=== PATIENT | male | born 1935 | race Caucasian/White ===

== ENCOUNTER 2019-09-15 09:00 | Observation (INO) | payer OTHER ==
[2019-09-12 12:40] LABS: BASOPHILS % (AUTO) 0.9 % (0.0-5.0); EOSINOPHILS % (AUTO) 1.3 % (0.0-8.0); HEMATOCRIT 42.6 % (42-54); LYMPHOCYTES % (AUTO) 28.3 % (21.0-51.0); MEAN CORPUSCULAR HEMOGLOBIN 31.7 pg (27.0-33.0); MEAN CORPUSCULAR HGB CONC 33.6 g/dL (32.0-36.0); MEAN CORPUSCULAR VOLUME 94.1 fL (79-99); NEUTROPHILS % (AUTO) 62.5 % (40.0-77.0); PLATELET COUNT (AUTO) 248 K/uL (130-400); RED BLOOD CELL COUNT(AUTO) 4.52 MIL/uL (4.50-6.20); RED CELL DISTRIBUTION WIDTH 13.7 % (11.0-15.5); WHITE BLOOD COUNT (AUTO) 7.6 K/uL (4.8-10.8)
[2019-09-12 12:47] LABS: CREATININE 1.2 mg/dL (0.5-1.5); POTASSIUM 4.6 mmol/L (3.5-5.1)
[2019-09-12 12:51] LABS: INR 1.11 (0.85-1.15); PARTIAL THROMBOPLASTIN TIME 30.7 SEC (26.3-35.5); PROTHROMBIN TIME 11.6 SEC (9.6-11.6)
[2019-09-12 13:37] VITALS: BP 136/70
[2019-09-15] VITALS (9 sets, daily range): BP systolic 103–141; BP diastolic 57–86
[~2019-09-15] VITALS: Ht 188 cm; Wt 88.6 kg
[~2019-09-15 09:00] MED LIST: APIX5TAB PO; ATOR10TA69 PO; CARV3.12 PO; CLINDAMYCIN 900 MG/D5% WATER 50 ML IV SCH; MEMA5TAB15 PO; SACU1TAB7 PO; SODIUM CHLORIDE 0.9% 1000ML 1,000 ML IV SCH
[2019-09-15] MEDS ORDERED: CEFAZOLIN SODIUM 1 GM VIAL ONE (11:26)
[2019-09-15] MEDS ORDERED: BUPIVACAINE/PF 0.25% 30ML VIAL IJ ONE (11:26)
[2019-09-15] MEDS ORDERED: MEPERIDINE-PF 25 MG/ML SYG ONE ×3 (11:26→13:04)
[2019-09-15] MEDS ORDERED: MIDAZOLAM HCL 1 MG/ML 2ML VIAL ONE ×3 (11:26→13:02)
[2019-09-15] MEDS ORDERED: LIDOCAINE HCL 1% MDV 50ML VIAL ONE (11:26)
[2019-09-15] MEDS ORDERED: VANCOMYCIN 1GM+NS 250ML 500 ML IV ONE (11:36)
[2019-09-15] MEDS ORDERED: IODIXANOL 320 MG/ML 100 ML VIAL ONE (11:57)
[2019-09-15] MEDS ORDERED: THROMBIN-JMI 5000 UNIT/VIAL TP ONE (13:01)
[2019-09-15] MEDS ORDERED: FENTANYL CITRATE PF 50 MCG/1 ML 2ML VIAL ONE (13:03)
[2019-09-15] MEDS ORDERED: OCTYL 2-CYANOACRYLATE 1 EACH TP ONE (13:11)
[2019-09-15] MEDS ORDERED: ONDANSETRON HCL 4 MG/2 ML VIAL IV PRN (13:45)
[2019-09-15] MEDS ORDERED: ACETAMINOPHEN-CODEINE 300/30MG TAB PO PRN ×2 (13:45)
--- NOTE | 2019-09-15 14:26 | NUR ---
CALL ANSWERING SERVICE TO PAGE TO ADMIT PT.
--- NOTE | 2019-09-15 14:50 | NUR ---
PT TSF BY BED TO RM [id number] REPORT GIVEN TO SONIA DELACRUZ RN. PT WAS STABLE NO COMPLICATION. DRESSING DRY AND INTACT AND PULSES PRESENT.
--- NOTE | 2019-09-15 15:30 | NUR ---
POST PROCEDURE RECEIVED PT FROM AUTOMATION QA ANALYST, IN FLAT POSITION, ASLEEP BUT AROUSEABLE, A&OX3, CALM COOPERATIVE AND DOES NOT APPEAR TO BE IN ANY DISTRESS NOR ANY NEURO DEFICITS PRESENT. LEFT SHOULDER DRESSING DRY, INTACT AND SECURED WITH ARM SLING. PT DOES C/O INCISIONAL SORENESS BUT DENIES NAUSEA OR DIZZINESS. PT ON BEDREST, CALL LIGHT WITHIN REACH, FAMILY AT BEDSIDE.
[2019-09-15] MEDS ORDERED: ACETAMINOPHEN 325 MG TAB ONE (19:31)
[2019-09-15] MEDS: SACUBITRIL PO SCH (21:00)
[2019-09-15] MEDS ORDERED: CARVEDILOL 3.125 MG TABLET PO SCH (21:00)
[2019-09-15] MEDS ORDERED: MEMANTINE HCL 5 MG TABLET PO SCH (21:00)
[2019-09-15] MEDS ORDERED: ATORVASTATIN CALCIUM 10 MG TABLET PO SCH (21:00)
[2019-09-15] MEDS: VALSARTAN PO SCH (21:00)
[2019-09-16 03:37] VITALS: BP 132/84
[2019-09-16] MEDS ORDERED: VANCOMYCIN 1GM+NS 250ML 250 ML IV SCH (06:00)
[2019-09-16 07:00] VITALS: BP 124/75
[2019-09-16 11:00] VITALS: BP 106/63
[2019-09-16] MEDS ORDERED: APIX5TAB PO (14:04)
[2019-09-16] MEDS ORDERED: DOXY100C2 PO (14:04)
[2019-09-16 15:00] VITALS: BP 146/86
[2019-09-16] MEDS: VALSARTAN PO SCH (16:49)
[2019-09-16] MEDS: SACUBITRIL PO SCH (16:49)
== END 2019-09-16 17:40 | disposition home or self-care (01) ==
LOC: DAH 09:00 → DAHIP 13:33 → DAH 13:33 → 2AH 15:10
PROVIDERS: ADMIT Internal Medicine; ATTEND Internal Medicine
DX: I42.8 Other cardiomyopathies (principal); R00.1 Bradycardia, unspecified; R53.83 Other fatigue; I10 Essential (primary) hypertension; E78.5 Hyperlipidemia, unspecified; Z79.01 Long term (current) use of anticoagulants; Z95.0 Presence of cardiac pacemaker; Z79.899 Other long term (current) drug therapy; Z88.0 Allergy status to penicillin; Z91.018 Allergy to other foods
CPT/HCPCS: 33225; 33229; 36415; 71045; 71046; 80048; 85025; 85610; 85730; 93005; A4215; A4216; A4221; A4222; A4223 ×3; A4606; A4663; C1769 ×2; C1882; C1894; C1900; G0378 ×28; J2175 ×3; J2250 ×3; J3370; J3490 ×3; Q9967; 99156; 99157; J0690; J3010

== ENCOUNTER → 2020-09-27 | Outpatient (CLI) | payer MEDICARE ==
[~2020-09-27] MED LIST changes: -CLINDAMYCIN 900 MG/D5% WATER 50 ML IV SCH; +DOXY100C2 PO; -MEMA5TAB15 PO; +MEMA5TAB42 PO; +REGADENOSON 0.4 MG/5 ML PF SYG IVP SCH; -SODIUM CHLORIDE 0.9% 1000ML 1,000 ML IV SCH
== END | disposition home or self-care (01) ==
LOC: SHCH 08:01
PROVIDERS: ATTEND Internal Medicine Cardiovascular Disease
DX: I10 Essential (primary) hypertension (principal); I42.8 Other cardiomyopathies
CPT/HCPCS: 78452; 93017; 96374; A9500 ×2; J2785

== ENCOUNTER 2021-01-04 06:48 | Day surgery (SDC) | payer MEDICARE ==
[2020-12-30 15:18] LABS: BASOPHILS % (AUTO) 1.3 % (0.0-5.0); EOSINOPHILS % (AUTO) 1.1 % (0.0-8.0); HEMATOCRIT 47.1 % (42-54); MEAN CORPUSCULAR HEMOGLOBIN 30.6 pg (27.0-33.0); MEAN CORPUSCULAR HGB CONC 32.3 g/dL (32.0-36.0); NEUTROPHILS % (AUTO) 51.5 % (40.0-77.0); PLATELET COUNT (AUTO) 155 K/uL (130-400); RED BLOOD CELL COUNT(AUTO) 4.96 MIL/uL (4.50-6.20); RED CELL DISTRIBUTION WIDTH 14.5 % (11.0-15.5); WHITE BLOOD COUNT (AUTO) 7.5 K/uL (4.8-10.8)
[2020-12-30 15:21] LABS: APPEARANCE,URINE Clear (CLEAR); BILIRUBIN,URINE Negative (NEGATIVE); COLOR,URINE Yellow (YELLOW); GLUCOSE, URINE (UA) Negative (NEGATIVE); KETONES,URINE Negative (NEGATIVE); LEUKOCYTE ESTERASE ,URINE Trace (NEGATIVE); NITRATE,URINE Negative (NEGATIVE); OCCULT BLOOD,URINE Trace (NEGATIVE); PROTEIN,URINE 300 mg/dL (NEGATIVE)
[2020-12-30 15:35] LABS: BACTERIA,URINE Few /HPF (None Seen); MUCUS,URINE Few LPF (None Seen); SQUAMOUS EPITHELIAL CELL,UR 0-2 /HPF (0-2); WBC,URINE 0-1 /HPF (0-1)
[2020-12-30 15:38] LABS: CREATININE 1.3 mg/dL (0.5-1.5); POTASSIUM 4.1 mmol/L (3.5-5.1)
[2020-12-30 15:40] LABS: INR 1.21 (0.85-1.15)
[2021-01-03 10:15] VITALS: BP 140/89
[~2021-01-04] VITALS: Ht 188 cm; Wt 93.8 kg
[2021-01-04] VITALS (11 sets, daily range): BP systolic 117–139; BP diastolic 64–94
[~2021-01-04 06:48] MED LIST changes: +APIX2.5T PO; -APIX5TAB PO; -DOXY100C2 PO; +MEMA10TA55 PO; -MEMA5TAB42 PO; +PRESERVISION VITAMIN PO; -REGADENOSON 0.4 MG/5 ML PF SYG IVP SCH
[2021-01-04] MEDS ORDERED: SODIUM CHLORIDE 0.9% 1000ML 1,000 ML IV SCH ×2 (08:00→10:00)
[2021-01-04] MEDS ORDERED: SODIUM BICARB 50MEQ 50ML VIAL 50 ML ONE (08:49)
[2021-01-04] MEDS ORDERED: NITROGLYCERIN 2 MG/VIAL VIAL IV ONE (08:49)
[2021-01-04] MEDS ORDERED: HEPARIN SODIUM 1000UNIT/ML 10ML VIAL ONE (08:49)
[2021-01-04] MEDS ORDERED: MIDAZOLAM HCL 1 MG/ML 2ML VIAL ONE (08:50)
[2021-01-04] MEDS ORDERED: MEPERIDINE-PF 25 MG/ML SYG ONE (08:50)
[2021-01-04] MEDS ORDERED: LIDOCAINE HCL 2% 20ML ONE (08:50)
[2021-01-04] MEDS ORDERED: IOHEXOL-350 75 ML VIAL IV ONE (08:51)
[2021-01-04] MEDS ORDERED: IOHEXOL 350 MG/ML 100ML INFUS..BTL IV ONE (08:51)
[2021-01-04] MEDS ORDERED: IOHEXOL-350 50ML VIAL IV ONE (08:51)
== END 2021-01-04 15:00 | disposition home or self-care (01) ==
LOC: DAH 06:48
PROVIDERS: ATTEND Internal Medicine Cardiovascular Disease
DX: I25.118 Atherosclerotic heart disease of native coronary artery with other forms of angina pectoris (principal); I34.0 Nonrheumatic mitral (valve) insufficiency; I10 Essential (primary) hypertension; E78.5 Hyperlipidemia, unspecified; I48.0 Paroxysmal atrial fibrillation; Z95.0 Presence of cardiac pacemaker; Z88.0 Allergy status to penicillin; Z91.018 Allergy to other foods; Z79.01 Long term (current) use of anticoagulants; Z79.899 Other long term (current) drug therapy
CPT/HCPCS: 36415; 71045; 75716; 80048; 81001; 85025; 85610; 85730; 93005; 93458; A4215; A4216; A4221; A4222; A4223 ×3; A4606; A4663; C1760; C1894; J1644; J2175; J2250; J3490 ×3; J7030; Q9965; Q9967 ×2; 99156; 99157

== ENCOUNTER → 2021-02-09 | Outpatient (CLI) | payer MEDICARE ==
[~2021-02-09] VITALS: Ht 188 cm; Wt 92.9 kg
[2021-02-09 10:48] LABS: APPEARANCE,URINE Clear (CLEAR); BASOPHILS % (AUTO) 0.9 % (0.0-5.0); BILIRUBIN,URINE Negative (NEGATIVE); COLOR,URINE Yellow (YELLOW); EOSINOPHILS % (AUTO) 1.3 % (0.0-8.0); GLUCOSE, URINE (UA) Negative (NEGATIVE); KETONES,URINE Negative (NEGATIVE); LEUKOCYTE ESTERASE ,URINE Negative (NEGATIVE); LYMPHOCYTES % (AUTO) 38.4 % (21.0-51.0); MEAN CORPUSCULAR HEMOGLOBIN 31.1 pg (27.0-33.0); MEAN CORPUSCULAR HGB CONC 32.7 g/dL (32.0-36.0); MEAN CORPUSCULAR VOLUME 95.1 fL (79-99); MONOCYTES % (AUTO) 8.2 % (3.0-13.0); NITRATE,URINE Negative (NEGATIVE); OCCULT BLOOD,URINE Negative (NEGATIVE); PLATELET COUNT (AUTO) 142 K/uL (130-400); PROTEIN,URINE Negative (NEGATIVE); RED BLOOD CELL COUNT(AUTO) 4.73 MIL/uL (4.50-6.20); RED CELL DISTRIBUTION WIDTH 14.6 % (11.0-15.5); WHITE BLOOD COUNT (AUTO) 6.4 K/uL (4.8-10.8)
[2021-02-09 10:59] LABS: CREATININE 1.2 mg/dL (0.5-1.5); POTASSIUM 4.5 mmol/L (3.5-5.1)
[2021-02-09 11:06] LABS: INR 1.21 (0.85-1.15)
[2021-02-09 11:08] LABS: PARTIAL THROMBOPLASTIN TIME 29.3 SEC (26.3-35.5)
[2021-02-10 10:47] VITALS: BP 139/94
== END | disposition home or self-care (01) ==
LOC: EDSTATUS 09:00 → DAH 10:00
PROVIDERS: ATTEND Internal Medicine Cardiovascular Disease
DX: I51.7 Cardiomegaly (principal); I48.91 Unspecified atrial fibrillation; I48.92 Unspecified atrial flutter; Z95.0 Presence of cardiac pacemaker
CPT/HCPCS: 36415; 71045; 80048; 81003; 85025; 85610; 85730; 93005; A6260

== ENCOUNTER 2021-03-10 13:00 | Inpatient (IN) | payer MEDICARE ==
[~2021-03-10] VITALS: Ht 188 cm; Wt 90.5 kg
[~2021-03-10 13:00] MED LIST changes: -APIX2.5T PO
[2021-03-10 15:03] LABS: BASOPHILS % (AUTO) 1.3 % (0.0-5.0); EOSINOPHILS % (AUTO) 1.7 % (0.0-8.0); HEMATOCRIT 40.8 % (42-54); LYMPHOCYTES % (AUTO) 37.3 % (21.0-51.0); MEAN CORPUSCULAR HEMOGLOBIN 31.2 pg (27.0-33.0); MEAN CORPUSCULAR HGB CONC 32.8 g/dL (32.0-36.0); MEAN CORPUSCULAR VOLUME 95.1 fL (79-99); NEUTROPHILS % (AUTO) 51.4 % (40.0-77.0); PLATELET COUNT (AUTO) 165 K/uL (130-400); RED BLOOD CELL COUNT(AUTO) 4.29 MIL/uL (4.50-6.20)
[2021-03-10 15:06] LABS: APPEARANCE,URINE Clear (CLEAR); BILIRUBIN,URINE Negative (NEGATIVE); COLOR,URINE Yellow (YELLOW); GLUCOSE, URINE (UA) Negative (NEGATIVE); KETONES,URINE Negative (NEGATIVE); LEUKOCYTE ESTERASE ,URINE Negative (NEGATIVE); NITRATE,URINE Negative (NEGATIVE); OCCULT BLOOD,URINE Negative (NEGATIVE); PROTEIN,URINE Negative (NEGATIVE)
[2021-03-10 15:15] LABS: INR 1.16 (0.85-1.15); PROTHROMBIN TIME 12.5 SEC (9.6-11.6)
[2021-03-10 15:16] LABS: PARTIAL THROMBOPLASTIN TIME 29.3 SEC (26.3-35.5)
[2021-03-10 15:20] LABS: CREATININE 1.3 mg/dL (0.5-1.5); POTASSIUM 4.2 mmol/L (3.5-5.1)
[2021-03-11] MEDS ORDERED: APIX5TAB PO (11:55)
[2021-03-11 11:56] VITALS: BP 125/78
[2021-03-14] VITALS (10 sets, daily range): BP systolic 117–172; BP diastolic 58–99
[2021-03-14] MEDS ORDERED: 0.9% NACL 500ML IV.SOLN 500 ML IV SCH (05:00)
[2021-03-14] MEDS ORDERED: 0.9%NACL 1000ML 1,000 ML IV ONE (06:13)
[2021-03-14] MEDS ORDERED: NITROGLYCERIN 2 MG VIAL IV ONE (09:34)
[2021-03-14] MEDS ORDERED: IOHEXOL 350 MG/ML 100ML INFUS..BTL IV ONE (09:34)
[2021-03-14] MEDS ORDERED: LIDOCAINE HCL 400MG/20ML VIAL ONE (09:34)
[2021-03-14] MEDS ORDERED: HEPARIN 10,000 UNIT/10ML (1,000 UNIT/ML) VIAL ONE (09:35)
[2021-03-14] MEDS ORDERED: MEPERIDINE-PF 50 MG/ML SYG ONE (09:56)
[2021-03-14] MEDS ORDERED: MIDAZOLAM HCL 1 MG/ML 2ML VIAL ONE ×4 (09:56→11:25)
[2021-03-14] MEDS ORDERED: SODIUM BICARB 50MEQ 50ML VIAL 50 ML ONE (10:01)
[2021-03-14] MEDS ORDERED: MEPERIDINE-PF 25 MG/ML SYG ONE ×2 (10:18→11:24)
[2021-03-14] MEDS ORDERED: CLOPIDOGREL 300MG TAB ONE (11:59)
[2021-03-14] MEDS ORDERED: ASPIRIN 325MG EC TAB PO ONE (11:59)
[2021-03-14] MEDS ORDERED: ONDANSETRON 4MG INJ IVP PRN (12:45)
[2021-03-14] MEDS ORDERED: ACETAMINOPHEN WITH CODEINE 1 TAB TAB PO PRN ×2 (12:45)
[2021-03-14] MEDS: 0.9%NACL 1000ML 1,000 ML IV SCH ×2 (12:45→21:00)
[2021-03-14] MEDS ORDERED: CLOPIDOGREL 300MG TAB PO SCH (13:45)
[2021-03-14] MEDS: MEMANTINE HCL 5 MG TABLET PO SCH (20:47)
[2021-03-14] MEDS ORDERED: CARVEDILOL 3.125 MG TABLET PO SCH (21:00)
[2021-03-14] MEDS ORDERED: ATORVASTATIN 10 MG TABLET PO SCH (21:00)
[2021-03-14] MEDS ORDERED: NON-FORMULARY MEDICATION 1 EACH (Memantine HCl 10 MG) PO SCH (21:00)
[2021-03-15 00:15] VITALS: BP 108/72
[2021-03-15 04:36] VITALS: BP 119/75
[2021-03-15 04:50] LABS: HEMATOCRIT 37.6 % (42-54); MEAN CORPUSCULAR HEMOGLOBIN 30.2 pg (27.0-33.0); MEAN CORPUSCULAR HGB CONC 31.4 g/dL (32.0-36.0); MEAN CORPUSCULAR VOLUME 96.2 fL (79-99); RED BLOOD CELL COUNT(AUTO) 3.91 MIL/uL (4.50-6.20); RED CELL DISTRIBUTION WIDTH 14.8 % (11.0-15.5); WHITE BLOOD COUNT (AUTO) 7.3 K/uL (4.8-10.8)
[2021-03-15 05:05] LABS: CREATININE 1.3 mg/dL (0.5-1.5); POTASSIUM 3.9 mmol/L (3.5-5.1)
[2021-03-15 07:00] VITALS: BP 120/74
[2021-03-15] MEDS: MEMANTINE HCL 5 MG TABLET PO SCH (08:51)
[2021-03-15] MEDS ORDERED: PANTOPRAZOLE 40 MG TAB DR PO SCH (09:00)
[2021-03-15] MEDS ORDERED: CLOPIDOGREL 75MG TAB PO SCH (09:00)
[2021-03-15 11:00] VITALS: BP 123/72
== END 2021-03-15 13:54 | disposition home or self-care (01) | DRG 215 ==
LOC: EDSTATUS 13:00 → DAHIP 03-14 07:18 → INTOOBSV 03-14 07:18 → OBSVTOIN 03-14 07:18 → 4DH 03-14 14:42
PROVIDERS: ADMIT Internal Medicine; ATTEND Internal Medicine
PROC: 02HA3RJ Insertion of Short-term External Heart Assist System into Heart, Intraoperative, Percutaneous Approach (ICD-10-PCS; principal; 2021-03-14)
PROC: 5A0221D Assistance with Cardiac Output using Impeller Pump, Continuous (ICD-10-PCS; 2021-03-14)
PROC: 027236Z Dilation of Coronary Artery, Three Arteries with Three Drug-eluting Intraluminal Devices, Percutaneous Approach (ICD-10-PCS; 2021-03-14)
PROC: 4A023N7 Measurement of Cardiac Sampling and Pressure, Left Heart, Percutaneous Approach (ICD-10-PCS; 2021-03-14)
PROC: B2111ZZ Fluoroscopy of Multiple Coronary Arteries using Low Osmolar Contrast (ICD-10-PCS; 2021-03-14)
DX: I25.119 Atherosclerotic heart disease of native coronary artery with unspecified angina pectoris (principal); I50.42 Chronic combined systolic (congestive) and diastolic (congestive) heart failure; I25.5 Ischemic cardiomyopathy; E78.5 Hyperlipidemia, unspecified; I11.0 Hypertensive heart disease with heart failure; I48.0 Paroxysmal atrial fibrillation; Z95.0 Presence of cardiac pacemaker; Z82.49 Family history of ischemic heart disease and other diseases of the circulatory system; Z88.0 Allergy status to penicillin
CPT/HCPCS: 33990; 36415; 71045; 80048; 81003; 85025; 85027; 85347; 85610; 85730; 93005; 93458; 99156; 99157; A4606; C1760; C1769; C1887; C1894; C9600; G0378; J1644; J2175; J2250; J3490; J7030; J7040; Q9967

== ENCOUNTER 2021-05-23 08:48 | Emergency (ER) | payer MEDICARE ==
[~2021-05-23] VITALS: Ht 188 cm; Wt 95.3 kg
[~2021-05-23 08:48] MED LIST changes: +APIX5TAB PO
[2021-05-23 08:51] VITALS: BP 91/66
[2021-05-23 10:11] VITALS: BP 103/73
[2021-05-23 11:39] VITALS: BP 122/89
[2021-05-23 12:36] LABS: BASOPHILS % (AUTO) 1.5 % (0.0-5.0); EOSINOPHILS % (AUTO) 2.3 % (0.0-8.0); HEMATOCRIT 49.3 % (42-54); MEAN CORPUSCULAR HEMOGLOBIN 30.2 pg (27.0-33.0); MEAN CORPUSCULAR HGB CONC 32.3 g/dL (32.0-36.0); MEAN CORPUSCULAR VOLUME 93.5 fL (79-99); MONOCYTES % (AUTO) 9.2 % (3.0-13.0); NEUTROPHILS % (AUTO) 54.9 % (40.0-77.0); PLATELET COUNT (AUTO) 207 K/uL (130-400); RED BLOOD CELL COUNT(AUTO) 5.27 MIL/uL (4.50-6.20); WHITE BLOOD COUNT (AUTO) 6.8 K/uL (4.8-10.8)
[2021-05-23 12:49] VITALS: BP 112/76
[2021-05-23 12:49] LABS: CREATININE 2.2 mg/dL (0.5-1.5); POTASSIUM 4.7 mmol/L (3.5-5.1)
[2021-05-23 12:54] LABS: ALBUMIN 4.2 g/dL (3.5-5.0); BILIRUBIN,TOTAL 1.6 mg/dL (0.2-1.0); TOTAL PROTEIN, SERUM 8.5 g/dL (6.0-8.3)
[2021-05-23 13:33] VITALS: BP 126/80
== END 2021-05-23 13:33 | disposition home or self-care (01) ==
LOC: EDH 08:48
DX: I95.9 Hypotension, unspecified (principal); N28.9 Disorder of kidney and ureter, unspecified; I11.0 Hypertensive heart disease with heart failure; I50.9 Heart failure, unspecified; E78.00 Pure hypercholesterolemia, unspecified; Z88.0 Allergy status to penicillin; Z98.890 Other specified postprocedural states; Z79.899 Other long term (current) drug therapy; Z79.01 Long term (current) use of anticoagulants
CPT/HCPCS: 36415; 71045; 80053; 84484; 85025; 93005

== ENCOUNTER 2022-05-15 05:47 | Day surgery (SDC) | payer MEDICARE ==
[2022-05-11 13:24] VITALS: BP 103/68
[2022-05-11 13:51] LABS: BASOPHILS % (AUTO) 0.8 % (0.0-5.0); EOSINOPHILS % (AUTO) 1.7 % (0.0-8.0); HEMATOCRIT 46.5 % (42-54); LYMPHOCYTES % (AUTO) 29.2 % (21.0-51.0); MEAN CORPUSCULAR HEMOGLOBIN 30.8 pg (27.0-33.0); MEAN CORPUSCULAR HGB CONC 32.5 g/dL (32.0-36.0); MEAN CORPUSCULAR VOLUME 94.7 fL (79-99); MONOCYTES % (AUTO) 8.4 % (3.0-13.0); NEUTROPHILS % (AUTO) 59.5 % (40.0-77.0); PLATELET COUNT (AUTO) 197 K/uL (130-400); RED BLOOD CELL COUNT(AUTO) 4.91 MIL/uL (4.50-6.20); RED CELL DISTRIBUTION WIDTH 13.7 % (11.0-15.5); WHITE BLOOD COUNT (AUTO) 8.5 K/uL (4.8-10.8)
[2022-05-11 14:01] LABS: CREATININE 1.5 mg/dL (0.5-1.5)
[2022-05-11 14:03] LABS: INR 1.13 (0.85-1.15); PROTHROMBIN TIME 12.2 SEC (9.6-11.6)
[2022-05-11 14:04] LABS: PARTIAL THROMBOPLASTIN TIME 29.8 SEC (26.3-35.5)
[2022-05-15] VITALS (11 sets, daily range): BP systolic 80–114; BP diastolic 59–81
[~2022-05-15] VITALS: Ht 188 cm; Wt 81.1 kg
[~2022-05-15 05:47] MED LIST changes: +BUME1TAB6 PO; +CLOP75TA32 PO; +LEVO25CA4 PO; -SACU1TAB7 PO; +SPIR25TA6 PO
[2022-05-15] MEDS ORDERED: 0.9%NACL 1000ML 1,000 ML IV ONE (06:09)
[2022-05-15] MEDS ORDERED: BUPIVACAINE/PF 0.25% 30ML VIAL IJ ONE (07:05)
[2022-05-15] MEDS ORDERED: CEFAZOLIN SODIUM 1 GM VIAL ONE (07:05)
[2022-05-15] MEDS ORDERED: MEPERIDINE-PF 25 MG/ML SYG ONE ×3 (07:06→09:05)
[2022-05-15] MEDS ORDERED: MIDAZOLAM HCL 1 MG/ML 2ML VIAL ONE ×3 (07:06→09:06)
[2022-05-15] MEDS ORDERED: LIDOCAINE HCL 1% MDV 50ML VIAL ONE (07:07)
[2022-05-15] MEDS ORDERED: VANCOMYCIN 1G/250ML KIT 250 ML IV ONE ×2 (07:30→07:32)
[2022-05-15] MEDS ORDERED: IOHEXOL-350 50ML VIAL IV ONE (07:43)
[2022-05-15] MEDS ORDERED: ONDANSETRON 4MG INJ IV PRN (09:30)
== END 2022-05-15 16:40 | disposition home or self-care (01) ==
LOC: DAH 05:47
PROVIDERS: ATTEND Internal Medicine Cardiovascular Disease
DX: I25.5 Ischemic cardiomyopathy (principal); I49.5 Sick sinus syndrome; I48.0 Paroxysmal atrial fibrillation; I11.0 Hypertensive heart disease with heart failure; I50.42 Chronic combined systolic (congestive) and diastolic (congestive) heart failure; I48.92 Unspecified atrial flutter; I25.10 Atherosclerotic heart disease of native coronary artery without angina pectoris; E78.5 Hyperlipidemia, unspecified; Z79.01 Long term (current) use of anticoagulants; Z79.899 Other long term (current) drug therapy; Z79.890 Hormone replacement therapy; Z95.5 Presence of coronary angioplasty implant and graft; Z88.0 Allergy status to penicillin; Z87.891 Personal history of nicotine dependence; Z91.018 Allergy to other foods
CPT/HCPCS: 80048; 85025; 85610; 85730; 36415; 93005; 33249; 33233; 71045; C1769 ×2; C1895; C1882; C1894; C1725; J7030; J3490 ×2; J2250 ×3; J3370 ×2; J2175 ×3; Q9967; A4215; A4222; A4221; A4663; A4216; A4606; A4223 ×3; 36005; 37248; 99156; 99157; J0690

== ENCOUNTER → 2022-09-25 | Outpatient (CLI) | payer MEDICARE | END | disposition home or self-care (01) | LOC: SHCH 12:29 | PROVIDERS: ATTEND Internal Medicine Cardiovascular Disease | DX: R60.9 Edema, unspecified (principal); I73.9 Peripheral vascular disease, unspecified | CPT/HCPCS: 93971 ==

== ENCOUNTER → 2023-07-26 | Outpatient (CLI) | payer MEDICARE | END | disposition home or self-care (01) | LOC: LAB 15:13 | PROVIDERS: ATTEND Internal Medicine Cardiovascular Disease | DX: I25.10 Atherosclerotic heart disease of native coronary artery without angina pectoris (principal) | CPT/HCPCS: 36415; 83880 ==

== ENCOUNTER 2024-08-08 09:44 | Observation (INO) | payer MEDICARE ==
[2024-08-05 08:59] LABS: BASOPHILS # (AUTO) 0.08 K/uL (0.00-0.20); BASOPHILS % (AUTO) 1.1 % (0.0-5.0); EOSINOPHILS # (AUTO) 0.12 K/uL (0.00-0.70); EOSINOPHILS % (AUTO) 1.6 % (0.0-8.0); HEMATOCRIT 45.9 % (42-54); IMMATURE GRANULOCYTE ABSOLUTE 0.02 K/uL (0-1); LYMPHOCYTES # (AUTO) 2.3 K/uL (1.0-4.8); LYMPHOCYTES % (AUTO) 31.3 % (21.0-51.0); MEAN CORPUSCULAR HEMOGLOBIN 28.9 pg (27.0-33.0); MEAN CORPUSCULAR HGB CONC 32.5 g/dL (32.0-36.0); MONOCYTES # (AUTO) 0.7 K/uL (0.1-1.0); MONOCYTES % (AUTO) 9.7 % (3.0-13.0); NEUTROPHILS # (AUTO) 4.2 K/uL (1.8-7.7); PLATELET COUNT (AUTO) 186 K/uL (130-400); RED BLOOD CELL COUNT(AUTO) 5.16 MIL/uL (4.50-6.20); RED CELL DISTRIBUTION WIDTH 17.1 % (11.0-15.5); WHITE BLOOD COUNT (AUTO) 7.4 K/uL (4.8-10.8)
[2024-08-05 09:06] LABS: POTASSIUM 2.9 mmol/L (3.5-5.1)
[2024-08-05 09:08] LABS: APPEARANCE,URINE CLEAR (CLEAR); BILIRUBIN,URINE NEGATIVE (NEGATIVE); COLOR,URINE LIGHT-YELLOW (YELLOW); GLUCOSE, URINE (UA) NEGATIVE (NEGATIVE); KETONES,URINE NEGATIVE (NEGATIVE); LEUKOCYTE ESTERASE ,URINE NEGATIVE Leu/uL (NEGATIVE); NITRATE,URINE NEGATIVE (NEGATIVE); OCCULT BLOOD,URINE NEGATIVE (NEGATIVE); PH,URINE 6.5 (5.0-8.0); PROTEIN,URINE NEGATIVE (NEGATIVE); UROBILINOGEN,URINE 0.2 mg/dL (0.2-1.0)
[2024-08-05 09:10] LABS: ADD UA MICROSCOPIC NO
[2024-08-05 09:17] LABS: INR 1.15 (0.85-1.15); PROTHROMBIN TIME 12.3 SEC (9.6-11.6)
[2024-08-05 09:18] LABS: PARTIAL THROMBOPLASTIN TIME 28.2 SEC (26.3-35.5)
[2024-08-05 09:20] LABS: B-TYPE NATRIURETIC PEPTIDE 1010 pg/mL (0-100)
[2024-08-05 09:27] VITALS: BP 87/54; PULSE 64; RESP 18; TEMP 97.3
[~2024-08-08] VITALS: Ht 188 cm; Wt 80.4 kg
[2024-08-08] VITALS (13 sets, daily range): BP systolic 90–122; BP diastolic 60–74; PULSE 64–75; RESP 14–18; TEMP 97.6–98.1; O2SAT 97
[~2024-08-08 09:44] MED LIST changes: +ASPI-1005 PO; -BUME1TAB6 PO; -CLOP75TA32 PO; +FURO20TA4 PO; -LEVO25CA4 PO; -MEMA10TA55 PO; +METO5TAB7 PO; +MIDO5TAB4 PO; +NITR0.4T50 SL; -SPIR25TA6 PO
[2024-08-08] MEDS: 0.9%NACL 1000ML 1,000 ML IV ONE (10:29)
[2024-08-08 10:55] LABS: CREATININE 1.9 mg/dL (0.5-1.3); POTASSIUM 3.6 mmol/L (3.5-5.1)
[2024-08-08] MEDS ORDERED: SODIUM BICARB 50MEQ 50ML VIAL 50 ML ONE (13:50)
[2024-08-08] MEDS ORDERED: IOHEXOL 350 MG/ML 100ML INFUS..BTL IV ONE (13:50)
[2024-08-08] MEDS ORDERED: LIDOCAINE HCL 400MG/20ML VIAL ONE (13:50)
[2024-08-08] MEDS ORDERED: HEParin 10,000 UNIT/10ML (1,000 UNIT/ML) VIAL ONE (13:50)
[2024-08-08] MEDS ORDERED: HEParin-NS 1,000 UNIT/500 ML 1,000 ML IV ONE (13:51)
[2024-08-08] MEDS ORDERED: NITROGLYCERIN 50MG VIAL ONE (13:51)
[2024-08-08] MEDS ORDERED: niCARDIpine 25MG INJ IV ONE (14:00)
[2024-08-08] MEDS ORDERED: MEPERIDINE-PF 50 MG/ML SYG ONE (14:14)
[2024-08-08] MEDS ORDERED: MIDAZOLAM HCL 1 MG/ML 2ML VIAL ONE (14:14)
[2024-08-08] MEDS ORDERED: NOREPINEPHRINE BITARTRATE 1 MG/1 ML ML IV ONE (14:43)
[2024-08-08] MEDS ORDERED: 0.9%NACL 1000ML 1,000 ML IV SCH (15:30)
[2024-08-08 22:21] LABS: INR 1.12 (0.85-1.15)
[2024-08-08 22:22] LABS: PARTIAL THROMBOPLASTIN TIME 27.2 SEC (26.3-35.5)
[2024-08-09] VITALS (13 sets, daily range): BP systolic 95–113; BP diastolic 60–76; PULSE 64–79; RESP 18; TEMP 96.3–98.8; O2SAT 97–100
[2024-08-09] MEDS ORDERED: ondanSETRON 4MG INJ IVP PRN (02:00)
[2024-08-09] MEDS ORDERED: hydrALAZine 20MG/ML VIAL IV PRN (02:00)
[2024-08-09] MEDS ORDERED: ALBUTEROL 0.083% 2.5 MG/3 ML INH IH PRN (02:00)
[2024-08-09] MEDS ORDERED: acetaMINOPHEN 650 MG SUPPOSITORY RC PRN (02:00)
[2024-08-09] MEDS ORDERED: HYDROcodone/APAP 5/325 1 TAB TABLET PO PRN (02:00)
[2024-08-09] MEDS ORDERED: acetaMINOPHEN 325 MG TAB PO PRN (02:00)
[2024-08-09] MEDS ORDERED: LAbetaLOL 20MG SYG IV PRN (02:00)
[2024-08-09] MEDS ORDERED: NITROGLYCERIN 0.4 MG SL TAB SL PRN (08:00)
[2024-08-09] MEDS ORDERED: NON-FORMULARY MEDICATION 1 EACH (Metolazone 5 MG) PO PRN (08:00)
[2024-08-09] MEDS ORDERED: miDODRine HCL 5 MG TABLET PO PRN (08:00)
[2024-08-09] MEDS: furoSEMIDE 20 MG TABLET PO SCH (08:24)
[2024-08-09] MEDS: ASCORBIC ACID 500 MG TAB PO SCH (08:24)
[2024-08-09] MEDS: ASPIRIN 81MG CHEW TAB PO SCH (08:24)
[2024-08-09] MEDS: APIXaban 5 MG TABLET PO SCH (08:25)
[2024-08-09] MEDS: PRESERVISION VITAMIN PO SCH (08:25)
[2024-08-09] MEDS: carVEDIlol 3.125 MG TABLET PO SCH (08:25)
[2024-08-09] MEDS: polyETHYLene GLYCol 3350 17 GM POWD.PACK PO SCH (08:26)
[2024-08-09] MEDS: PoTASSium chloRIDE 20MEQ ER 20 MEQ ERTAB PO ONE (08:27)
[2024-08-09] MEDS: PoTASSium chloRIDE 20MEQ ER 20 MEQ ERTAB PO PRN (08:27)
[2024-08-09] MEDS ORDERED: MAGNESIUM 2GM PREMIX 50ML 50 ML IV PRN (08:30)
[2024-08-09] MEDS ORDERED: PoTASSium chl 10% ELIXIR 20MEQ 20 MEQ/15 ML UDCUP PO PRN (08:30)
[2024-08-09] MEDS ORDERED: PoTASSium chloRIDE 20MEQ/100ML 100 ML IV PRN (08:30)
[2024-08-09 09:14] LABS: MAGNESIUM 2.5 mg/dL (1.80-2.40); POTASSIUM 3.5 mmol/L (3.5-5.1)
[2024-08-09] MEDS ORDERED: atorVAStatin 10 MG TABLET PO SCH (21:00)
== END 2024-08-09 11:30 | disposition home or self-care (01) ==
LOC: DAH 09:44 → DAHIP 09:45 → DAH 21:28 → 2DH 23:59
PROVIDERS: ADMIT Internal Medicine Critical Care Medicine; ATTEND Internal Medicine Critical Care Medicine
DX: I25.119 Atherosclerotic heart disease of native coronary artery with unspecified angina pectoris (principal); I10 Essential (primary) hypertension; E78.5 Hyperlipidemia, unspecified; I25.5 Ischemic cardiomyopathy; I48.0 Paroxysmal atrial fibrillation; Z79.01 Long term (current) use of anticoagulants; Z79.899 Other long term (current) drug therapy; Z88.0 Allergy status to penicillin; Z95.0 Presence of cardiac pacemaker; Z95.1 Presence of aortocoronary bypass graft
CPT/HCPCS: 80048 ×2; 83880; 85025; 85610 ×2; 85730 ×2; 81003; 36415 ×3; 71045; 93005; 93458; 85347; 83735; 84132; 94664; C1769; A4649; C1894; Q9965; G0378 ×14; J3490 ×5; J7030; J1644 ×2; J2250; J2175; Q9967; A4215; A4223 ×3; A4222; A4221; A4663; A4216; A4606; 99156; 99157

== ENCOUNTER → 2025-01-15 | Outpatient (CLI) | payer OTHER ==
[2025-01-15 12:32] LABS: ALBUMIN 3.6 g/dL (3.5-5.0); BILIRUBIN,TOTAL 2.1 mg/dL (0.2-1.0); CREATININE 1.8 mg/dL (0.5-1.3); MAGNESIUM 2.5 mg/dL (1.80-2.40); POTASSIUM 3.1 mmol/L (3.5-5.1)
== END | disposition home or self-care (01) ==
LOC: LAB 09:54
PROVIDERS: ATTEND Nurse Practitioner Acute Care
DX: I10 Essential (primary) hypertension (principal)
CPT/HCPCS: 36415; 80053; 83735; 83880